=== PATIENT | male | born 1995 | race Caucasian/White ===

== ENCOUNTER 2018-10-21 15:47 | Emergency (ER) | payer OTHER ==
[~2018-10-21] VITALS: Ht 177.8 cm; Wt 106.6 kg
[2018-10-21 15:54] VITALS: Ht 177.8 cm; Wt 106.6 kg
[2018-10-21 16:46] VITALS: BP 165/91
== END 2018-10-21 18:07 | disposition home or self-care (01) ==
LOC: ED 15:47
DX: S20.219A Contusion of unspecified front wall of thorax, initial encounter (principal); W50.0XXA Accidental hit or strike by another person, initial encounter; Y93.89 Activity, other specified; Y92.89 Other specified places as the place of occurrence of the external cause; Y99.8 Other external cause status
CPT/HCPCS: Q0092